=== PATIENT | male | born 1930 | race Caucasian/White ===

== ENCOUNTER 2018-09-02 16:43 | Inpatient (IN) | payer MEDICARE ==
[~2018-09-02] VITALS: Ht 180.3 cm; Wt 71.9 kg
[~2018-09-02 16:43] MED LIST: ALLO100 PO; ASCO1ER PO; ASCO500 PO; AZIT500 PO; B Complex #11 EACH PO; CARV25 PO; DEXT30SU PO; DIGO.125 PO; DOCU100 PO; ENTRESTO 24 MG1 EACH PO; FISH1000 PO; FURO40 PO; FURO80 PO; GLIM2 PO; GLIM4 PO; GUAI600T33 PO; INSLI100I SUBQ; INSUASPI SC; INSUGL100V SC; Isosorbide Mono30 MG PO; LACT10SY PO; LANOXIN125 MCG PO; LISI20 PO; LOSA50 PO; METO2.5 PO; METO5 PO; METO50ER PO; METPRE4DP PO; MINOIL PR; MSM1000 MG PO; MULVITMIND PO; Novolog100 UNIT/1 SC; OXYACE5T PO; PANT40 PO; POTA10T PO; POTCHL10ER PO; PROBIOTIC1 EACH PO; SPIR25 PO; TOCO400 PO; TORSE20 PO; UBID100 PO; Vitamin C100 M1 PO; Vitamin D2000 UNIT PO; WARF5 PO; WARF7.5 PO; XARELTO15 MG PO
[2018-09-02 17:37] LABS: BASOPHILS ABSOLUTE AUTO 0.02 K/mm3 (0.00-0.23); BASOPHILS PERCENT AUTO 0 % (0-2); EOSINOPHILS ABSOLUTE AUTO 0.15 K/mm3 (0.00-0.68); EOSINOPHILS PERCENT AUTO 2 % (0-6); Hemoglobin 7.8 g/dL (13.5-17.5); IMMATURE GRAN ABSOLUTE AUTO 0.05 K/mm3 (0.00-0.10); IMMATURE GRAN PERCENT AUTO 1 % (0-1); LYMPHOCYTES ABSOLUTE AUTO 1.08 K/mm3 (0.84-5.20); LYMPHOCYTES PERCENT AUTO 11 % (21-46); MONOCYTES PERCENT AUTO 5 % (4-13); Mean Corpuscular HGB 32.2 pg (26.0-34.0); Mean Corpuscular HGB Conc 31.2 g/dL (31.5-36.5); Mean Corpuscular Volume 103 fL (80-100); Mean Platelet Volume 10.2 fL (9.1-12.4); NEUTROPHILS ABSOLUTE AUTO 8.19 K/mm3 (1.96-9.15); NEUTROPHILS PERCENT AUTO 82 % (41-73); Platelet Count 165 K/mm3 (150-400); RDW Coefficient Variation 16.1 % (11.7-14.2); RDW Standard Deviation 60.6 fL (35.1-46.3); Red Blood Cell Count 2.42 M/mm3 (4.30-5.90); White Blood Cell Count 9.99 K/mm3 (4.00-11.30)
[2018-09-02 17:55] LABS: Albumin, Blood 3.2 g/dL (3.4-5.0); Bilirubin, Total 0.7 mg/dL (0.1-1.0); Bun/Creatinine Ratio 79.4 (12.0-20.0); Calcium, Blood 8.7 mg/dL (8.5-10.1); Creatinine, Blood 1.7 mg/dL (0.60-1.20); Globulin, Blood 3.2 g/dL (2.2-4.0); Potassium, Blood 4.5 mmol/L (3.5-5.5); Total Protein, Blood 6.4 g/dL (6.4-8.2)
[2018-09-02 17:57] LABS: Prothrombin Time Results 42.9 Sec (9.7-11.5)
[2018-09-02 18:01] LABS: International Normalized Ratio 4.65
[2018-09-02 20:08] LABS: Digoxin (Lanoxin) 1.27 ug/mL (0.80-2.00)
[2018-09-02] MEDS ORDERED: POTA10T PO (20:13)
[2018-09-02 23:49] LABS: Hematocrit 30.4 % (37.0-53.0); Hemoglobin 9.5 g/dL (13.5-17.5)
--- NOTE | 2018-09-03 00:56 | NUR ---
Recieved report and pt transferred to PCU 1 at 2213 via gurney and accompanied by ED RN. Pt able to transfer self to PCU bed with moderate assistance. Pt denies feeling dizzy or lightheaded with transfer. VSS upon arrival. Pt without chest pain, chest pressure, acute SOB, pt appears with no signs of distress. Pt accompanied by daughter Bertha. Pt able to make needs known, bed alarm on and bed in lowest and locked position. VS remain stable, HGB improving after 2 units of PRBC given in ED. Sanchez Rangel called this RN for update and update given: BP Stable, blood infused, Hgb improved, pt with appropriate mentation. No new orders recieved. Will continue to monitor and update.
[2018-09-03 03:57] LABS: Hematocrit 27.1 % (37.0-53.0); Hemoglobin 8.7 g/dL (13.5-17.5)
[2018-09-03 04:11] LABS: International Normalized Ratio 1.34
[2018-09-03 04:16] LABS: Prothrombin Time Results 13.8 Sec (9.7-11.5)
[2018-09-03 04:18] LABS: Bun/Creatinine Ratio 79.5 (12.0-20.0); Calcium, Blood 8.5 mg/dL (8.5-10.1); Creatinine, Blood 1.56 mg/dL (0.60-1.20); Magnesium, Blood 2.4 mg/dL (1.6-2.4); Potassium, Blood 4.1 mmol/L (3.5-5.5)
--- NOTE | 2018-09-03 06:44 | NUR ---
Shift Summary No acute changes this shift. VSS. Pt restful, sleeping throughout shift. No changes in mentation. Pt remains alert and oriented. Answers questions appropriately. Uses call light appropriately. Hgb dropped to 8.7. Discussed value with studio operations engineer in charge, Ros. Pt remains with stable BP and HR. Protonix gtt infusing per orders. Pt able to void at bedside into urinal. No active bleed, no BM this shift. Will continue to monitor.
[2018-09-03 08:10] LABS: Hematocrit 28.8 % (37.0-53.0); Hemoglobin 9.1 g/dL (13.5-17.5)
--- NOTE | 2018-09-03 09:14 | NUR ---
09/03/18 [address] FARTUN RIVAS TO LEAVE ICD ON FOR PROCEDURE, WILL PLACE MAGNET OVER AICD IF CAUTERY NEEDED
[2018-09-03 11:58] LABS: Hematocrit 28.4 % (37.0-53.0)
--- NOTE | 2018-09-03 14:20 | NUR ---
Advance Directive Education attempted. Patient is sleeping and could not wake him even after touching his shoulder and saying patient's name several times. Patient only snored more loudly. I left Advance Directive materials on patient's table.
--- NOTE | 2018-09-03 18:49 | NUR ---
SHIFT SUMMARY; PT HAD UPPER GI SCOPE TODAY WITHOUT INTERVENTION. HIS HGB IS NOW 9.0 NO NEW ORDERS ARE RECEIVED. SPOUSE IS AT BEDSIDE TODAY. PT WORKS WITH PT AND OT TODAY. HE HAS TWO EPISODES NOTED OF ELEVATED HR IN THE 130'S
--- NOTE | 2018-09-04 00:08 | NUR ---
Assumed care of pt at approx 1900. Pt appears sleepy, breathing easy and unlabored. Pt states he has felt sleepy since the EGD procedure. Pt responds to questions appropriately, is alert and oriented. family at bedside. Pt with slight hypotension this shift, otherwise VSS. house mother in to see pt with RN regarding blood pressure of 90's/40's. MAP remains >60. Close monitoring of BP for changes assessed this shift. Pt advised not to get up without assistance and is compliant. No s/sx of bleeding. Uses call light appropriately, call light in reach. See shift assessment for detailed assessment. Will continue monitoring.
[2018-09-04 03:44] LABS: BASOPHILS ABSOLUTE AUTO 0.01 K/mm3 (0.00-0.23); BASOPHILS PERCENT AUTO 0 % (0-2); EOSINOPHILS ABSOLUTE AUTO 0.19 K/mm3 (0.00-0.68); EOSINOPHILS PERCENT AUTO 2 % (0-6); Hematocrit 25.7 % (37.0-53.0); Hemoglobin 8.1 g/dL (13.5-17.5); IMMATURE GRAN ABSOLUTE AUTO 0.04 K/mm3 (0.00-0.10); IMMATURE GRAN PERCENT AUTO 0 % (0-1); LYMPHOCYTES ABSOLUTE AUTO 1.04 K/mm3 (0.84-5.20); LYMPHOCYTES PERCENT AUTO 12 % (21-46); MONOCYTES ABSOLUTE AUTO 0.63 K/mm3 (0.16-1.47); MONOCYTES PERCENT AUTO 7 % (4-13); Mean Corpuscular HGB Conc 31.5 g/dL (31.5-36.5); NEUTROPHILS ABSOLUTE AUTO 7.13 K/mm3 (1.96-9.15); NEUTROPHILS PERCENT AUTO 79 % (41-73); Platelet Count 122 K/mm3 (150-400); RDW Coefficient Variation 17.9 % (11.7-14.2); RDW Standard Deviation 62.2 fL (35.1-46.3); Red Blood Cell Count 2.61 M/mm3 (4.30-5.90); White Blood Cell Count 9.04 K/mm3 (4.00-11.30)
[2018-09-04 03:50] LABS: Mean Corpuscular Volume 99 fL (80-100)
[2018-09-04 04:00] LABS: Anion Gap 6 mmol/L (6-16); Blood Urea Nitrogen 106 mg/dL (8-24); Bun/Creatinine Ratio 71.1 (12.0-20.0); CO2, Blood 26 mmol/L (21-32); Calcium, Blood 8.4 mg/dL (8.5-10.1); Chloride, Blood 110 mmol/L (98-108); Creatinine, Blood 1.49 mg/dL (0.60-1.20); Glomerular Filtration Rate 47 (60-); Glucose, Blood 190 mg/dL (70-99); Phosphorus, Blood 2.7 mg/dL (2.5-4.9); Potassium, Blood 4.1 mmol/L (3.5-5.5); Sodium, Blood 142 mmol/L (136-145)
--- NOTE | 2018-09-04 05:09 | NUR ---
Dr. Tobias called and made aware of pt continued hypotension and accompanied hbg drop to 8.1. Pt has remained asymptomatic, is orthostatically stable, denies SOB, denies feelings of dizziness or lightheadedness, no changes in mentation, pt remains alert and oriented, answers all questions apporpiately. No signs or symptoms of active bleed, abdomen is non-tender and soft. Pt denies pain. Per Dr. Tobias: continue to monitor pt and repeat CBC at 1000. This RN will continue to monitor and follow orders as stated.
--- NOTE | 2018-09-04 05:59 | NUR ---
Shift Summary Pt remains alert and oriented, breathing easy and unlabored, no changes in pt appearance, skin temperature improved from cool at begining of shift to warm. Pt remains with low blood pressures, MD notified and aware, no new orders recieved at this time. Pt denies sx of hypotension, orthostatically stable, HR remains WNL. MD notifed and aware of hgb drop from 9.0 to 8.1, new order of repeat CBC at 1000 recieved. Pt remains without complaints of pain, tenderness, or discomfort. Pt uses call light appropriately, able to make needs known. No event noted on tele. Pt able to sleep on and off throughout shift. Will continue to monitor and update.
[2018-09-04 10:23] LABS: Hematocrit 26.4 % (37.0-53.0); Hemoglobin 8.3 g/dL (13.5-17.5); Mean Corpuscular HGB 31.1 pg (26.0-34.0); Mean Corpuscular HGB Conc 31.4 g/dL (31.5-36.5); Mean Corpuscular Volume 99 fL (80-100); Platelet Count 129 K/mm3 (150-400); RDW Standard Deviation 62.6 fL (35.1-46.3); Red Blood Cell Count 2.67 M/mm3 (4.30-5.90); White Blood Cell Count 9.22 K/mm3 (4.00-11.30)
--- NOTE | 2018-09-04 16:43 | NUR ---
SHIFT SUMMARY PT RESTING IN BED THROUGHOUT THE DAY. VSS EXCEPT SLIGHTLY HYPOTENSIVE. PT IS ASYMPTOMATIC WITH LOW BP. ALERT AND ORIENTED X3. PT AMBULATED TO BATHROOM WITH STANDBY ASSIST. PT HAD 1 MEDIUM BM TODAY, NOTED TO BE BLACK AND TARRY. UP TO CHAIR FOR MEALS. LUNG SOUNDS CLEAR, AFIB RATE 80s-90s ON TELEMETRY. 2+ PITTING EDEMA TO BLE. C/O DISCOMFORT TO ANKLE R/T EDEMA, DECLINES OFFERED PAIN MEDS. FAMILY AT BEDSIDE THIS AFTERNOON. PT RECEIVED 1 UNIT PRBC TODAY, TOLERATED WELL. WILL CONTINUE TO MONITOR.
[2018-09-05 03:36] LABS: BASOPHILS ABSOLUTE AUTO 0.02 K/mm3 (0.00-0.23); BASOPHILS PERCENT AUTO 0 % (0-2); EOSINOPHILS ABSOLUTE AUTO 0.17 K/mm3 (0.00-0.68); EOSINOPHILS PERCENT AUTO 2 % (0-6); Hematocrit 27.9 % (37.0-53.0); Hemoglobin 8.9 g/dL (13.5-17.5); IMMATURE GRAN ABSOLUTE AUTO 0.04 K/mm3 (0.00-0.10); IMMATURE GRAN PERCENT AUTO 1 % (0-1); LYMPHOCYTES ABSOLUTE AUTO 1.15 K/mm3 (0.84-5.20); LYMPHOCYTES PERCENT AUTO 14 % (21-46); MONOCYTES ABSOLUTE AUTO 0.74 K/mm3 (0.16-1.47); MONOCYTES PERCENT AUTO 9 % (4-13); Mean Corpuscular HGB 31.7 pg (26.0-34.0); Mean Corpuscular HGB Conc 31.9 g/dL (31.5-36.5); Mean Corpuscular Volume 99 fL (80-100); Mean Platelet Volume 10.6 fL (9.1-12.4); NEUTROPHILS ABSOLUTE AUTO 6.34 K/mm3 (1.96-9.15); NEUTROPHILS PERCENT AUTO 75 % (41-73); Platelet Count 135 K/mm3 (150-400); RDW Coefficient Variation 17.6 % (11.7-14.2); RDW Standard Deviation 61.1 fL (35.1-46.3); Red Blood Cell Count 2.81 M/mm3 (4.30-5.90); White Blood Cell Count 8.46 K/mm3 (4.00-11.30)
[2018-09-05 03:51] LABS: Bun/Creatinine Ratio 58.1 (12.0-20.0); Calcium, Blood 8.3 mg/dL (8.5-10.1); Creatinine, Blood 1.6 mg/dL (0.60-1.20); Potassium, Blood 4.6 mmol/L (3.5-5.5)
--- NOTE | 2018-09-05 05:44 | NUR ---
SHIFT SUMMARY: PT A&OX4. HYPOTENSIVE T/O SHIFT WITH MAP REMAINING >60. ALL OTHER VS WNL. PT DENIES DIZZINESS. HGB STABLE AT 8.9 THIS MORNING. PT HAD ONE SMALL BM/SMEAR. APPEARED TARRY BLACK IN COLOR. PT C/O PAIN TO BILATERAL ANKLES. PT REPORTS HX OF GOUT. 1+ PITTING EDEMA TO BILAT FEET. GIVEN TYLENOL PER EMAR. EXTREMITIES ELEVATED ON PILLOWS. SCDS ON. VOIDING IN URINAL AT BEDSIDE. BARRIER CREAM APPLIED TO BUTTOCKS. MEPILEX IN PLACE TO COCCYX FOR MILD REDNESS. PT TURNED FREQ T/O SHIFT FOR COMFORT. POSSIBLE DISCHARGE TODAY.
[2018-09-05] MEDS ORDERED: Humalog100 UNIT/3 SC (12:50)
[2018-09-05] MEDS ORDERED: SPIR25 PO (12:53)
--- NOTE | 2018-09-05 13:28 | NUR ---
DISCHARGE NOTE PT STABLE FOR DISCHARGE. IV X2 REMOVED. DISCHARGE INSTRUCTIONS, DISCHARGE MEDICATIONS, LOW SLIDING SCALE HANDOUT AND NEW MEDICATION EDUCATION PROVIDED TO AND REVIEWED WITH PT AND DAUGHTER. PT AND DAUGHTER VERBALIZE UNDERSTANDING AND DENY QUESTIONS AT THIS TIME. PT DISCHARGED VIA WHEELCHAIR TO WAITING CAR WITH PERSONAL BELONGINGS.
== END 2018-09-05 13:40 | disposition home or self-care (01) | DRG 378 ==
LOC: ER 16:43 → PCU 19:10
PROVIDERS: Internal Medicine; Nurse Practitioner Acute Care; Physician Assistant; Student in an Organized Health Care Education/Training Program; ADMIT Hospitalist
PROC: 30233N1 Transfusion of Nonautologous Red Blood Cells into Peripheral Vein, Percutaneous Approach (ICD-10-PCS; 2018-09-03)
PROC: 30283B1 Transfusion of Nonautologous 4-Factor Prothrombin Complex Concentrate into Vein, Percutaneous Approach (ICD-10-PCS; 2018-09-03)
PROC: 0DJ08ZZ Inspection of Upper Intestinal Tract, Via Natural or Artificial Opening Endoscopic (ICD-10-PCS; principal; 2018-09-03 08:45)
DX: K92.2 Gastrointestinal hemorrhage, unspecified (principal); I50.22 Chronic systolic (congestive) heart failure; D62 Acute posthemorrhagic anemia; I13.0 Hypertensive heart and chronic kidney disease with heart failure and stage 1 through stage 4 chronic kidney disease, or unspecified chronic kidney disease; I25.5 Ischemic cardiomyopathy; I48.2 Chronic atrial fibrillation; J44.9 Chronic obstructive pulmonary disease, unspecified; M10.9 Gout, unspecified; Z95.810 Presence of automatic (implantable) cardiac defibrillator; Z79.4 Long term (current) use of insulin; Z87.891 Personal history of nicotine dependence; E11.22 Type 2 diabetes mellitus with diabetic chronic kidney disease; Z79.01 Long term (current) use of anticoagulants; I95.9 Hypotension, unspecified; N18.3 Chronic kidney disease, stage 3 (moderate)
CPT/HCPCS: 36415; 36430; 71045; 80048; 80053; 80069; 80162; 82272; 82947; 83735; 83880; 84145; 85014; 85018; 85025; 85027; 85610; 85730; 86850; 86900; 86901; 86923; 93005; 93010; 96361; 96365; 96367; 96375; 97110; 97116; 97162; 97166; 97535; 99285-25; A9270; C9113; C9132; J1940; J2250; J2370; J2704; J3430; J7030; J7120; P9016

== ENCOUNTER 2018-10-10 21:38 | Inpatient (IN) | payer MEDICARE ==
[~2018-10-10] VITALS: Ht 175.3 cm; Wt 70.1 kg
[~2018-10-10 21:38] MED LIST changes: +Humalog100 UNIT/3 SC
[2018-10-10 22:04] LABS: BASOPHILS ABSOLUTE AUTO 0.04 K/mm3 (0.00-0.23); BASOPHILS PERCENT AUTO 0 % (0-2); EOSINOPHILS ABSOLUTE AUTO 0.06 K/mm3 (0.00-0.68); EOSINOPHILS PERCENT AUTO 0 % (0-6); Hematocrit 40.2 % (37.0-53.0); Hemoglobin 12.7 g/dL (13.5-17.5); IMMATURE GRAN ABSOLUTE AUTO 0.17 K/mm3 (0.00-0.10); IMMATURE GRAN PERCENT AUTO 1 % (0-1); LYMPHOCYTES PERCENT AUTO 4 % (21-46); MONOCYTES PERCENT AUTO 6 % (4-13); Mean Corpuscular HGB 31.1 pg (26.0-34.0); Mean Corpuscular HGB Conc 31.6 g/dL (31.5-36.5); Mean Corpuscular Volume 99 fL (80-100); Mean Platelet Volume 10.8 fL (9.1-12.4); NEUTROPHILS ABSOLUTE AUTO 19.28 K/mm3 (1.96-9.15); NEUTROPHILS PERCENT AUTO 89 % (41-73); Platelet Count 236 K/mm3 (150-400); RDW Coefficient Variation 15.5 % (11.7-14.2); RDW Standard Deviation 56.1 fL (35.1-46.3); Red Blood Cell Count 4.08 M/mm3 (4.30-5.90); White Blood Cell Count 21.75 K/mm3 (4.00-11.30)
[2018-10-10 22:22] LABS: Albumin, Blood 3.8 g/dL (3.4-5.0); Albumin/Globulin Ratio 0.9 (0.8-1.8); Bilirubin, Total 0.9 mg/dL (0.1-1.0); Bun/Creatinine Ratio 40.8 (12.0-20.0); Calcium, Blood 8.9 mg/dL (8.5-10.1); Creatinine, Blood 2.23 mg/dL (0.60-1.20); Globulin, Blood 4.3 g/dL (2.2-4.0); Total Protein, Blood 8.1 g/dL (6.4-8.2); Troponin I 0.027 ng/mL (0.000-0.040)
[2018-10-10 22:43] LABS: Digoxin (Lanoxin) 1.33 ug/mL (0.80-2.00)
[2018-10-10] MEDS ORDERED: ELIQUIS2.5 MG PO (23:05)
--- NOTE | 2018-10-11 00:32 | NUR ---
PT ARRIVES TO ICU 11 VIA GURNEY FROM ER, ALERT AND ORIENTED X 3, DENIES CURRENT N/V, DENIES CP/PRESSURE, STATES THAT BREATHING FEELS IMPROVED. SENTANCES ARE FULL, PRODUCTIVE COUGH IS NOTED, SPUTUM PINK ON TISSUE, PT REPORTS SPUTUM HAS BEEN CLEAR AND FROTHY AT HOME, LUNGS ARE CLEAR WITH DIM BASES BILAT, SATS ARE MID TO HIGH 90S WITH OXYGEN AT 3 L/MIN VIA NC, PT STATES THAT HE DOES NOT USE OXYGEN AT HOME, RESP RATE MID 20S, NO VISIBLE INCREASED WORK OF BREATHING AT THIS TIME. TACHYCARDIA NOTED, AFIB WITH RVR ON MONITOR, RATE UP TO 150S, PT NOTED HYPOTENSIVE, CALL PLACED TO DR DE LEON HOSPITALIST DRUM ATTENDANT AND HE ARRIVES TO BEDSIDE FOR EVALUATION. ABD SOFT, HYPERACTIVE BOWEL TONES NOTED, PT HAS BEEN INCONT OF BROWN LIQUID STOOL PRIOR TO ARRIVAL IN ICU, ATTENDS ARE NOTED IN PLACE, PT CLEANED AND ATTENDS REPLACED, BARRIER CREAM TO BUTTOCKS AFTER WOUND PHOTO OBTAINED. PT VOIDS 100 ML CLEAR YELLOW URINE IN URINAL WITHOUT DIFFICULTY. IV ACCESS TO RIGHT AC AND LEFT WRIST IS NOTED, SITES WNL, AND IVS FLUSH WITHOUT DIFFICULTY, PT TOLERATES WELL.
[2018-10-11 00:51] LABS: Source, Urine Clean Catch
[2018-10-11 00:56] LABS: Bilirubin, Urine Neg (Neg); Blood, Urine Neg (Neg); Glucose Qualitative, Urine Neg (Neg); Ketones, Urine Neg (Neg); Leukocyte Esterase, Urine Neg (Neg); Nitrite, Urine Neg (Neg); Protein, Urine Neg (Neg); Specific Gravity, Urine 1.015 (1.003-1.022); Urobilinogen, Urine NORM (Normal)
[2018-10-11 01:01] LABS: Appearance, Urine Clear (Clear); Color, Urine Yellow (P-Yellow)
--- NOTE | 2018-10-11 01:20 | NUR ---
ESMOLOL DC'D PER VERBAL ORDER FROM DR DE LEON, THIS RN WAS INSTRUCTED TO WAIT 30 MINUTES PRIOR TO STARTING NEOSYNEPHRINE AND TO ONLY START ANISH IF PT'S MAP IS LESS THAN 55. WILL MONITOR.
--- NOTE | 2018-10-11 01:30 | NUR ---
SPUTUM COLLECTED, NOTED PINK AND FROTHY IN SPECIMEN CUP, DR DE LEON IS STILL AT BEDSIDE AND NOTIFIED OF SPUTUM PRODUCTION.
[2018-10-11 01:38] LABS: Hematocrit 37.1 % (37.0-53.0); Hemoglobin 11.7 g/dL (13.5-17.5); Mean Corpuscular HGB 31.7 pg (26.0-34.0); Mean Corpuscular HGB Conc 31.5 g/dL (31.5-36.5); Mean Corpuscular Volume 101 fL (80-100); Mean Platelet Volume 10.9 fL (9.1-12.4); Platelet Count 180 K/mm3 (150-400); RDW Coefficient Variation 15.7 % (11.7-14.2); RDW Standard Deviation 57.4 fL (35.1-46.3); Red Blood Cell Count 3.69 M/mm3 (4.30-5.90); White Blood Cell Count 24.02 K/mm3 (4.00-11.30)
[2018-10-11 02:00] LABS: Albumin, Blood 3.3 g/dL (3.4-5.0); Albumin/Globulin Ratio 0.9 (0.8-1.8); Bilirubin, Total 1.1 mg/dL (0.1-1.0); Bun/Creatinine Ratio 42.2 (12.0-20.0); Calcium, Blood 8.5 mg/dL (8.5-10.1); Creatinine, Blood 2.06 mg/dL (0.60-1.20); Globulin, Blood 3.8 g/dL (2.2-4.0); Potassium, Blood 4.6 mmol/L (3.5-5.5); Total Protein, Blood 7.1 g/dL (6.4-8.2)
--- NOTE | 2018-10-11 02:00 | NUR ---
SPOKE WITH DR DE LEON REGARDING PT CONTINUED HYPOTENSION WITH IMPROVED RATE CONTROL, THIS RN IS AGAIN INSTRUCTED TO NOT START NEOSYNEPHRINE UNLESS PT'S MAP IS LESS THAN 55 AND THAT IT MAY BE RUN THROUGH PERIPHERAL ACCESS SITES LONG IT IS AT LOW DOSES OF 5 MCG/MIN OR LESS.
[2018-10-11 03:16] LABS: Adenovirus Not Detected (NOT DETECT); Bordetella pertussis Not Detected (NOT DETECT); Chlamydophila pneumoniae Not Detected (NOT DETECT); Coronavirus 229E Not Detected (NOT DETECT); Coronavirus HKU1 Not Detected (NOT DETECT); Coronavirus NL63 Not Detected (NOT DETECT); Coronavirus OC43 Not Detected (NOT DETECT); Human Metapneumovirus Not Detected (NOT DETECT); Human Rhinovirus/Enterovirus Not Detected (NOT DETECT); Influenza A Not Detected (NOT DETECT); Influenza A/2009-H1 Not Detected (NOT DETECT); Influenza A/H1 Not Detected (NOT DETECT); Influenza A/H3 Not Detected (NOT DETECT); Influenza B Not Detected (NOT DETECT); Mycoplasma pneumoniae Not Detected (NOT DETECT); Parainfluenza Virus 1 Not Detected (NOT DETECT); Parainfluenza Virus 2 Not Detected (NOT DETECT); Parainfluenza Virus 3 Not Detected (NOT DETECT); Parainfluenza Virus 4 Not Detected (NOT DETECT); Respiratory Syncytial Virus Not Detected (NOT DETECT)
--- NOTE | 2018-10-11 07:29 | NUR ---
PT RESTS QUIETLY FOLLOWING ADMIT, CONTINUES HYPOTENSIVE WITH RATE CONTROLLED TO THE 90S, MAP TRENDED DOWN TO LESS THAN 55 AFTER 0600 THIS AM AND NEOSYNEPHRINE WAS STARTED AT 5 MCG/MIN PER ORDERS. HE CONTINUES TO ROUSE EASILY TO VERBAL STIMULI AND REMAINS ORIENTED, PULSES REMAIN FAINT BUT PALPABLE X 4, SKIN IS WARM AND DRY, URINE OUTPUT OF 300 ML SINCE MIDNOC. HE STATES THAT HE IS FEELING IMPROVED FROM ARRIVAL TO ER AND DENIES SOB/DYSPNEA, DENIES CP/PRESSURE, DENIES N/V. LUNGS REMAIN CLEAR THROUGHOUT WITH DIM BASES BILAT, SATS REMAIN HIGH 90S WITH OXYGEN AT 3 L/MIN VIA NC, NO INCREASED WORK OF BREATHING IS NOTED THIS SHIFT, COUGH CONTINUES TO BE PRODUCTIVE OF PINK SPUTUM. AFIB CONTINUES HOWEVER RATE IS IMPROVED TO 70-90S AT THIS TIME.
--- NOTE | 2018-10-11 07:30 | NUR ---
BEGINNING OF SHIFT Assumed care at 0700 with Huong CLARKE. Bedside report recieved from Jeni CLARKE. Pt alert and oriented. SpO2 90% or greater with 3 LPM NC. Pt does not wear O2 at baseline. Amiodarone infusing at 1 mg/min. Neosynephrine infusing at 5 mcg/min. MAP 55-60. Cardiology consult orders received. Paged Dr Sullivan. Awaiting provider to call unit.
--- NOTE | 2018-10-11 08:00 | NUR ---
NEOSYNEPHRINE INCREASED BP 55/37 with neosynephrine at 5 mcg/min. Pt alert, oriented, talking to staff. States he is feeling lightheaded. Neosynephrine required titration up to 20 mcg/min to obtain MAP 55-60. Will continue to monitor. Amiodarone decreased to 0.5 mg/min per orders. Paged Dr Sullivan at 0750 to notify of consult. Awaiting provider to return call.
--- NOTE | 2018-10-11 08:35 | NUR ---
UPDATE Dr Lu in to see pt. Discussed current vasopressor requirements, maintenance fluids, BP, BNP. Provider stated pt okay to eat and drink. Notified provider that Dr Sullivan has not contacted unit to accept consult yet. Paged Dr Sullivan at 0830. Awaiting provider to call unit.
--- NOTE | 2018-10-11 09:19 | NUR ---
PICC LINE Called Dr Lu at 0900. Inquired about inserting PICC line since pt is on vasopressors. New orders received. Called pt's spouse to update and educate about PICC line insertion. Spouse verbalizes understanding.
--- NOTE | 2018-10-11 10:17 | NUR ---
UPDATE Spoke to Dr Sullivan at 0930. Ordered to contiue neosynephrine and amiodarone until provider can see pt. PICC line inserted. correctional maintenance technician at bedside for placement verification.
--- NOTE | 2018-10-11 14:08 | NUR ---
DR STRATTON IN TO SEE PT AT 1245 Orders for CVP via PICC line. CVP 13. Provider notified. Provider verbalizes recommendation to DC amiodarone, DC neosynephrine, and use levophed for BP support. Provider states these recommendations are to be given to hospitalist for further orders. Call placed to Dr Lu. New orders received.
--- NOTE | 2018-10-11 14:50 | NUR ---
ROOM AIR Titrated to room air. SpO2 96%. Pt currently in bed, sleeping.
--- NOTE | 2018-10-11 15:17 | NUR ---
VASOPRESSOR UPDATE Neosynephrine off. Levophed infusing at 6 mcg/min.
--- NOTE | 2018-10-11 16:00 | NUR ---
DR NAPOLES IN TO SEE PT Provider states goal MAP 50-55. Levophed titrated down to 5 mcg/min. Pt remains on room air.
--- NOTE | 2018-10-11 17:25 | NUR ---
SUMMARY Pt has remained A&O x 4. Pt reports some lightheadedness with low BPs but otherwise asymptomatic. Neosynephrine discontinued. Levophed infusing at 4 mcg/min. Amiodarone off. Atrial fibrillation with rate between 85 and 95 for majority of shift; pt has about 15 PVCs per minute, multifocal. Trace edema noted to bilateral lower extremities. Pt sat on edge of bed and stood at bedside. Pt stated lightheadedness and dizziness with standing. Pt reamains on room air, SpO2 95% or greater. Fine bibasilar crackles noted on lung auscultation. Pt has not had BM this shift. Voids into urinal at bedside. Pt states poor appetite but otherwise no problems eating, drinking, or swallowing. Will continue to closely monitor until care handoff and bedside report with oncoming RN. Pt's daughter Bertha visited twice today.
--- NOTE | 2018-10-11 19:15 | NUR ---
ASSUMED CARE OF PT, BEDSIDE REPORT RECEIVED. FAMILY AT BEDSIDE, PT CONVERSING IN FULL SENTANCES, DENIES PAIN, DENIES N/V, DENIES SOB/DYSPNEA. LEVOPHED AT 3 MCG/MIN AT THIS TIME INFUSING TO PICC LINE IN RIGHT UPPER ARM.
--- NOTE | 2018-10-11 20:45 | NUR ---
PT RESTING QUIETLY AT THIS TIME, DENIES CP/PRESSURE, DENIES SOB/DYSPNEA, DENIES N/V, DENIES DIZZINESS/VERTIGO, DENIES PAIN. SPEAKING IN FULL SENTANCES, LEVOPHED DECREASED TO 2 MCG/MIN FOR MAP GREATER THAN ORDERED 50-55 WILL CONT TO MONITOR AND TITRATE PER ORDERS. LUNGS CLEAR WITH DIM BASES BILAT LEFT BASE IS MORE DIMINISHED THAN RIGHT, MAINTAINING SATS ON ROOM AIR, RATE HIGH TEENS LOW 20S, OCCASIONAL COUGH, SPUTUM PRODUCTION IS DECREASED FROM PREV SHIFT PER PT. AFIB CONTINUES, RATE CONTROLLED 100-LOW 110S AT THIS TIME, PRESSURE IMPROVED, SKIN PWD, CAP REFILL BRISK, PULSES PALPABLE X 4 EXTREMITIES, TRACE EDEMA TO BILAT LOWER EXTREMITIES IS NOW EVIDENT, WILL MONITOR.
--- NOTE | 2018-10-12 03:20 | NUR ---
AFIB WITH RVR SPOKE WITH DR STRATTON REGARDING PT HR, BP, CURRENT LEVOPHED RATE, AND MAP. ORDERS RECEIVED TO CHANGE FROM LEVOPHED TO DOPAMINE AT LOW RATE FOR PRESSURE SUPPORT AND IMPROVED HEART RATE.
--- NOTE | 2018-10-12 03:47 | NUR ---
LEVOPHED GTT DC'D PER ORDERS AND DOPAMINE GTT STARTED INFUSING AT 2.5 MCG/KG/MIN WILL MONITOR.
[2018-10-12 04:41] LABS: BASOPHILS ABSOLUTE AUTO 0.03 K/mm3 (0.00-0.23); BASOPHILS PERCENT AUTO 0 % (0-2); EOSINOPHILS ABSOLUTE AUTO 0.15 K/mm3 (0.00-0.68); EOSINOPHILS PERCENT AUTO 1 % (0-6); Hematocrit 33.3 % (37.0-53.0); Hemoglobin 10.7 g/dL (13.5-17.5); IMMATURE GRAN ABSOLUTE AUTO 0.05 K/mm3 (0.00-0.10); IMMATURE GRAN PERCENT AUTO 0 % (0-1); LYMPHOCYTES ABSOLUTE AUTO 1.08 K/mm3 (0.84-5.20); LYMPHOCYTES PERCENT AUTO 9 % (21-46); MONOCYTES ABSOLUTE AUTO 1.05 K/mm3 (0.16-1.47); MONOCYTES PERCENT AUTO 9 % (4-13); Mean Corpuscular HGB 31.6 pg (26.0-34.0); Mean Corpuscular HGB Conc 32.1 g/dL (31.5-36.5); Mean Platelet Volume 11.2 fL (9.1-12.4); NEUTROPHILS ABSOLUTE AUTO 10.02 K/mm3 (1.96-9.15); NEUTROPHILS PERCENT AUTO 81 % (41-73); Platelet Count 175 K/mm3 (150-400); RDW Coefficient Variation 15.3 % (11.7-14.2); RDW Standard Deviation 55.3 fL (35.1-46.3); Red Blood Cell Count 3.39 M/mm3 (4.30-5.90); White Blood Cell Count 12.38 K/mm3 (4.00-11.30)
[2018-10-12 04:48] LABS: Mean Corpuscular Volume 98 fL (80-100)
[2018-10-12 05:04] LABS: Albumin, Blood 2.8 g/dL (3.4-5.0); Anion Gap 9 mmol/L (6-16); Blood Urea Nitrogen 81 mg/dL (8-24); Bun/Creatinine Ratio 41.1 (12.0-20.0); CO2, Blood 21 mmol/L (21-32); Calcium, Blood 8.2 mg/dL (8.5-10.1); Chloride, Blood 108 mmol/L (98-108); Creatinine, Blood 1.97 mg/dL (0.60-1.20); Glomerular Filtration Rate 34 (60-); Glucose, Blood 101 mg/dL (70-99); Phosphorus, Blood 2.9 mg/dL (2.5-4.9); Potassium, Blood 4.4 mmol/L (3.5-5.5); Sodium, Blood 138 mmol/L (136-145)
--- NOTE | 2018-10-12 06:00 | NUR ---
PT AWAKE AND WATCHING TV MOST OF THIS SHIFT, DENIES CP/PRESSURE, DENIES SOB/DYSPNEA THROUGHOUT SHIFT. UP TO BSC FOR BM X 1 EARLY THIS SHIFT AND DENIED DIZZINESS/VERTIGO AND TOLERATED WELL. LUNGS REMAIN CLEAR WITH DIM BASES BILAT THIS SHIFT WITH LEFT BASE MORE DIM THAN RIGHT, HOWEVER SATS WITH SLEEP AND TACHYCARDIA THIS AM DECREASED TO 88-89%, NASAL CANNULA APPLIED AT 1 L/MIN AND TITRATED UP TO 3 L/MIN, PT TOLERATED WELL. AFIB WITH RVR CONTINUES THIS AM, RATES UP TO 160S, SPOKE WITH DR STRATTON REGARDING PT RATE AND PRESSURES AND ORDERS WERE OBTAINED TO DC LEVOPHED AND USE LOW DOSE DOPAMINE, DOPAMINE STARTED AT 2.5 MCG/KG/MIN PER DR STRATTON AND HAS BEEN TITRATED DOWN TO 0.5 MCG/KG/MIN OF THIS TIME, HEART RATE CONTINUES 150S, WHEN DOPAMINE ORDER WAS OBTAINED, THIS RN INQUIRED REGARDING PRN RATE CONTROL AND DR STRATTON DISCUSSED RATIONALE FOR NOT ORDERING AMIODARONE, CARDIZEM, OR BETA BLOCKERS. PT DOES STATE THAT HIS HOME RATE RANGES BETWEEN 100 AND 140 BPM.
--- NOTE | 2018-10-12 09:45 | NUR ---
ASSUMED CARE OF PATIENT PER KENNA BECKHAM RN, PATIENT IS RESTING COMFORTABLY, BLOOD GLUCOSE 98, PATIENT IS ALERT AND ORIENTED, LUNG SOUNDS CLEAR, PATIENT TOOK AM MEDICATION WELL, NO PROBLEM SWALLOWING, LUCINDA BETANCOURT, CARE LOOPER FIXER IN TO SEE PATIENT, DAUGHTER AT BEDSIDE, PATIENT USES URINAL, CALL LIGHT IN REACH, WILL CONTINUE TO MONITOR.
--- NOTE | 2018-10-12 11:55 | NUR ---
REPORT GIVEN TO DAVID HERNÁNDEZ RN.
--- NOTE | 2018-10-12 11:55 | NUR ---
CARE OF PT ASSUMED. DR NAPOLES IN TO SEE PT. DOPAMINE STOPPED. PT IN A FIB W RATE 120-140'S. PT AWAKE AND ALERT W/O COMPLAINTS.
--- NOTE | 2018-10-12 15:00 | NUR ---
PT OOB TO CHAIR. LET PT DANGLE FOR 5MIN PRIOR TO MOVING TO CHAIR. BP STABLE. PT REMAINS IN A FIB. RATE 150-160 WHILE UP IN CHAIR; JUST SLIGHTLY HIGHER THAN WHILE IN BED. BATH GIVEN WHILE UP IN CHAIR. PALLIATIVE CARE IN TO VISIT WITH PT SHORTLY AFTER. PT COMFORTABLE SITTING UP; DENIES ALL COMPLAINTS.
--- NOTE | 2018-10-12 15:22 | NUR ---
Initial Visit: Palliative Care Consult for Advanced Care Planning, Cardiac, AD/POLST, and Pulmonary. Pt is A&O and denies pain at this time. He denies dyspnea, anxiety, and nausea. Engaged in therapeutic discussion regarding advanced care planning. Pt reports living at home with his and son. He has 2 daughters and 2 grandchildren. Pt reports not practicing any yarsani. Difficult to have endepth conversation and Pt appears mildly withdrawn and is not engaging. Pt reports adequate support at home with his children. Pt reports at baseline he is independent with his ADLs. Engaged in conversaiton regarding disease process and inquired about Pt's understanding of heart condition. Pt states "It's on it's last leg". Pt reports plan to donate his body to science. Discussed hospice as an option and Pt reports hospice already coming to his home. Pt states he is not interested in hospice. Suggested to Pt this option will be available at any time if he changes his mind. Educated Pt on the professional support that hospice provides for his family as well. V/U made by Pt. Pt reports no other concerns at this time. Pt's daughter Elissa arrives during visit and reports no concerns. Elissa states "he is a tough old bird". Palliative Care will remain available.
--- NOTE | 2018-10-12 16:50 | NUR ---
PT REMAINS UP IN CHAIR W/O COMPLAINTS. DR NAPOLES IN TO SEE PT; METOPROLOL PO ORDERED FOR RATE CONTROL; BP REMAINS STABLE.
--- NOTE | 2018-10-12 19:04 | NUR ---
PT ASSISTED BACK TO BED FROM CHAIR. MUCH MORE WEAK THIS TIME WITH POOR PERIPHERAL PERFUSION; COLD CYANOTIC EXT, CYANOTIC LIPS. PT DENIES C/O OTHER THAN BEING TIRED. HEART RATE OVER ALL HAS LOWERED; 100-140'S. BP REMAINS STABLE. SATS 96% ON RA. PT COLORING DID IMPROVE ONCE RESTING IN BED
--- NOTE | 2018-10-12 21:10 | NUR ---
START OF SHIFT: REPORT FROM DAVID CLARKE. PT PLACED BACK INTO BED WITHOUT DIFFICULTY. VSS. PT WITH NO COMPLAINTS. PT WITH VISITOR AT BEDSIDE. AT 1999. PT USES CALL LIGHT APPROPRIATELY.
--- NOTE | 2018-10-13 00:46 | NUR ---
PT ASSISTED UP TO CHAIR. PT WATCHING TV. CALL LIGHT IN HAND.
--- NOTE | 2018-10-13 04:22 | NUR ---
PT BACK TO BED WITH MINIMAL ASSIST. PT PLEASANT WITH NO COMPLAINTS. CALL LIGHT WITHIN REACH.
--- NOTE | 2018-10-13 08:00 | NUR ---
PT LAYING IN BED AWAKE A/OX3, PLEASANT AND COOPERATIVE WITH CARE, FOLLOWS COMMANDS WELL, DENIES PAIN AT THIS TIME, LUNGS ARE COURSE T/O, DIM IN BASES, RESP EVEN AND UNLABORED, IS CURRENTLY ON R/A, SATS IN MID 90'S, HRIRR, MONITOR IN PLACE RUNNING AFIB WITH A RATE OF 150 VARIABLE, WILL GIVE MEDIATIONS THIS AM TO SLOW IT, B/P IS LOW 100'S, IV IS PICC LINE TO MERCDEEZ SITE IS CLEAR AND PATENT, BTX4, ABD FLAT SOFT NONTENDER, VOIDS VIA URINAL, SKIN C/W/D, IS PINK ON COCCYX WITH A MEPILEX DRESSING, MAEW, ARETHA, DECONDITIONED, WEAK, HEELS ARE FLOATED ON PILLOWS, CALL LIGHT IN REACH.
[2018-10-13 08:03] LABS: Hematocrit 35.2 % (37.0-53.0); Hemoglobin 11.2 g/dL (13.5-17.5); Mean Corpuscular HGB 31.2 pg (26.0-34.0); Mean Corpuscular HGB Conc 31.8 g/dL (31.5-36.5); Mean Corpuscular Volume 98 fL (80-100); Mean Platelet Volume 11.2 fL (9.1-12.4); Platelet Count 175 K/mm3 (150-400); RDW Coefficient Variation 15.5 % (11.7-14.2); RDW Standard Deviation 56.2 fL (35.1-46.3); Red Blood Cell Count 3.59 M/mm3 (4.30-5.90); White Blood Cell Count 11.14 K/mm3 (4.00-11.30)
[2018-10-13 08:25] LABS: Bun/Creatinine Ratio 43.5 (12.0-20.0); Calcium, Blood 8.6 mg/dL (8.5-10.1); Creatinine, Blood 1.7 mg/dL (0.60-1.20); Potassium, Blood 4.6 mmol/L (3.5-5.5)
--- NOTE | 2018-10-13 14:25 | NUR ---
PT SITTING UP IN CHAIR SINCE BEFORE LUNCH, HAVE ASSISTED HIM TO BSC, HE DID HAVE A SMALL BM. HE WAS ASKED SEVERAL TIMES IF HE WOULD LIKE TO GET BACK TO BED, HE DECLINED, STATES HE BREATHS EASIER IN CHAIR, B/P IS IN THE 80'S AFTER THE EXTRA DOSE OF METOPROLOL, HEART RATE CAME DOWN TO [id number]. DR. NAPOLES STOPPED TO SEE HOW HES' DOING, SHE IS OK TO JUST WATCH, AND SAID HIS B/P IS OFTEN IN THE 80'S, MAP IS OVER 60. CALL LIGHT IN REACH.
--- NOTE | 2018-10-13 15:06 | NUR ---
PT LEFT FOR PCU VIA WHEELCHAIR WITH FOUNDER & CEO AND DAUGHTER IN ATTENDENCE. REPORT TO MABEL RN, ALL BELONGINGS WENT WITH PT.
--- NOTE | 2018-10-13 17:11 | NUR ---
NURSING PCU DAYSHIFT SUMMARY: Assumed care of pt at approx 1505. Arrived from ICU accompanied by staff and family. Xfer to chair, oriented to unit, call light placed in reach. Respiratory status appears stable though pt experiences dyspnea w/exertion, O2 sat upper 90's on RA. Tele in place, afib w/HR 150's, no c/o CP/pressure, BP stable. Pt denies any current needs or questions regarding plan of care. Call light in reach and pt is able to use w/o difficulty. Remains in chair at this time. Cont to monitor until rpt is given to NOC RN.
[2018-10-14 04:27] LABS: BASOPHILS ABSOLUTE AUTO 0.03 K/mm3 (0.00-0.23); BASOPHILS PERCENT AUTO 0 % (0-2); EOSINOPHILS ABSOLUTE AUTO 0.18 K/mm3 (0.00-0.68); EOSINOPHILS PERCENT AUTO 2 % (0-6); Hematocrit 35.1 % (37.0-53.0); Hemoglobin 11.2 g/dL (13.5-17.5); IMMATURE GRAN ABSOLUTE AUTO 0.04 K/mm3 (0.00-0.10); IMMATURE GRAN PERCENT AUTO 0 % (0-1); LYMPHOCYTES ABSOLUTE AUTO 0.99 K/mm3 (0.84-5.20); LYMPHOCYTES PERCENT AUTO 10 % (21-46); MONOCYTES ABSOLUTE AUTO 0.71 K/mm3 (0.16-1.47); MONOCYTES PERCENT AUTO 7 % (4-13); Mean Corpuscular HGB 30.8 pg (26.0-34.0); Mean Corpuscular HGB Conc 31.9 g/dL (31.5-36.5); Mean Corpuscular Volume 96 fL (80-100); Mean Platelet Volume 11.2 fL (9.1-12.4); NEUTROPHILS ABSOLUTE AUTO 8.46 K/mm3 (1.96-9.15); NEUTROPHILS PERCENT AUTO 81 % (41-73); Platelet Count 192 K/mm3 (150-400); RDW Coefficient Variation 15.6 % (11.7-14.2); RDW Standard Deviation 55.6 fL (35.1-46.3); Red Blood Cell Count 3.64 M/mm3 (4.30-5.90); White Blood Cell Count 10.41 K/mm3 (4.00-11.30)
[2018-10-14 04:41] LABS: Anion Gap 8 mmol/L (6-16); Blood Urea Nitrogen 82 mg/dL (8-24); Bun/Creatinine Ratio 45.6 (12.0-20.0); CO2, Blood 21 mmol/L (21-32); Calcium, Blood 8.7 mg/dL (8.5-10.1); Chloride, Blood 109 mmol/L (98-108); Glomerular Filtration Rate 38 (60-); Glucose, Blood 159 mg/dL (70-99); Magnesium, Blood 2.4 mg/dL (1.6-2.4); Phosphorus, Blood 3.7 mg/dL (2.5-4.9); Potassium, Blood 4.9 mmol/L (3.5-5.5); Sodium, Blood 138 mmol/L (136-145)
--- NOTE | 2018-10-14 06:13 | NUR ---
UPDATE DR DE LEON NOTIFIED THAT PATIENT'S HEART RATE HAS CONTINUED TO RUN IN THE 140'S-150'S THROUGHOUT MOST OF THE NIGHT SO FAR. NO ORDERS GIVEN AT THIS TIME.
--- NOTE | 2018-10-14 06:16 | NUR ---
SHIFT SUMMARY PATIENT PLEASENT AND COOPERATIVE THROUGHOUT THE NIGHT. PATIENT RESTED IN BED FOR PART OF THE NIGHT BUT WAS UNABLE TO SLEEP WELL DUE TO DIFFICULTY BREATHING. PATIENT THEN MOVED TO THE RECLINER WHERE HE SPENT MOST OF THE REST OF THE NIGHT. PATIENT STATED THAT HE IS ABLE TO BREATH MUCH BETTER WHILE SITTING UP IN THE CHAIR. IV ABX GIVEN PER ORDERS. PATIENT'S HEART RATE MOSTLY REMAINED IN THE 140'S-150'S THROUGHOUT THE NIGHT. DR DE LEON AWARE. HOWEVER, PATIENT DENIES ANY DIZZINESS AND STATES THAT HIS CHEST, "FEELS FINE." VITAL SIGNS CHARTED. WILL CONTINUE TO MONITOR PATIENT AND REPORT TO ONCOMING RN.
--- NOTE | 2018-10-14 07:21 | NUR ---
NURSING PCU DAYSHIFT: Assumed care of pt at approx 0700. A/O, very pleasant, mildly [place], cooperative w/care. Denies any pain/discomfort at rest. Skin is fragile w/reported redness to coccyx, mepilex in place. General weakness noted, requires assistance for transfers. C/O chronic numbness/tingling of BLE. Tele in place, afib w/HR 150's, no c/o CP/pressure, SBP 113 prior to a.m. meds, trace edema noted to LLE. L/S fairly cta t/o w/dim bases, respirations rapid and shallow, O2 sat upper 90's on RA, c/o dyspnea w/minimal exertion or supine positioning, occ cough producing frothy/white sputum. Abd SNT, BT+, voids small amts of urine using urinal. PICC present in RUE, s/l. Pt denies any current needs or questions regarding plan of care. Assisted w/positioning in bed, heels floated. Call light in reach and pt is able to use w/o difficulty. Awaiting rounding from PMD, cont to monitor for any changes.
--- NOTE | 2018-10-14 15:54 | NUR ---
NURSING PCU DAYSHIFT SUMMARY: No acute changes noted t/o the shift. HR has maintained 130-150's, BP stable. Finance Business Partner notified of difficulties maintaining HR, new d/o received, amiodarone started. Discussed amiodarone w/pt who stated he took it several years ago and it caused "calcium to build up in my eyes" which is why it is listed as an allergy for pt. Pt stated he is aware options are limited and that he wants to try amiodarone, first dose administered. Pt has spend majority of shift sitting on edge of bed. Lying down cause pt to experience increased dyspnea, sitting in recliner caused too much buttocks discomfort. Able to reposition independently from lying down to dangling position. Family at bedside earlier in afternoon. Update provided. Pt denies any current questions, call light in reach, cont to monitor until rpt is given to NOC RN.
[2018-10-15 03:38] LABS: Hematocrit 34.6 % (37.0-53.0); Mean Corpuscular HGB Conc 31.8 g/dL (31.5-36.5); Mean Corpuscular Volume 98 fL (80-100); Mean Platelet Volume 10.9 fL (9.1-12.4); Platelet Count 197 K/mm3 (150-400); RDW Coefficient Variation 15.5 % (11.7-14.2); RDW Standard Deviation 55.4 fL (35.1-46.3); Red Blood Cell Count 3.55 M/mm3 (4.30-5.90); White Blood Cell Count 10.77 K/mm3 (4.00-11.30)
[2018-10-15 03:55] LABS: Bun/Creatinine Ratio 50.5 (12.0-20.0); Calcium, Blood 8.8 mg/dL (8.5-10.1); Creatinine, Blood 1.92 mg/dL (0.60-1.20); Potassium, Blood 5.5 mmol/L (3.5-5.5)
--- NOTE | 2018-10-15 06:53 | NUR ---
SHIFT SUMMARY PATIENT PLEASENT AND COOPERATIVE THROUGHOUT THE NIGHT. PATIENT SAT UP AT THE EDGE OF THE BED MOST OF THE NIGHT STATING THAT SITTING UP HELPED HIM BREATH BETTER AND HELPED TO RELIEVE HIS BACK PAIN. PATIENT PROVIDED WITH AN EGG CREATE FOR COMFORT. PATIENT CONTINUES TO SIT AT THE EDGE OF THE BED THIS MORNING STATING THAT HE WAS MOST COMFORTABLE SITTING UP. PATIENT STATED HE WAS FINE AT THE EDGE OF THE BED AND DID NOT WANT TO SIT IN THE CHAIR. VITAL SIGNS CHARTED. IV ABX GIVEN PER ORDERS. PATIENT APPEARED TO NAP ON AND OFF LAST NIGHT. WILL CONTINUE TO MONITOR PATIENT AND REPORT TO ONCOMING RN.
--- NOTE | 2018-10-15 07:43 | NUR ---
pt sitting on the side of the bed awake a/ox3, pleasant and cooperative with care follows commands well, denies pain, lungs are clear t/o, resp even and unlabored, no cough noted, hrirr, tele in place running afib per monitor at 115bpm, trace edema noted to b/l le, cap refill <4 sec, vs stable, afebrile, iv site is a picc line to diana site is clear and patent, btx4, abd round soft nontender, voids via urinal, skin has pink bottom otherwise c/w/d, rogelio, bert, call light in reach.
[2018-10-15] MEDS ORDERED: Amiodarone HCl200 MG PO (15:08)
[2018-10-15] MEDS ORDERED: HIGH POTENCY P1 EACH PO (15:09)
[2018-10-15] MEDS ORDERED: CEFP200 PO (15:10)
--- NOTE | 2018-10-15 15:53 | NUR ---
PT HAS BEEN DISCHARGED TO HOME, WENT OVER DISCHARGE INSTRUCTIONS WITH 2 DAUGHTERS, ANSWERED QUESTIONS UNTIL THEY WERE SATIFIED THEY UNDERSTOOD. CALLED NEW MEDICATIONS TO [facility], AND FAXED TO THEM. DAUGHTERS WILL GO TO GET [employer] THEN PICK HIM UP. HE IS SITTING ON THE SIDE OF THE BED MOST OF THE DAY, GAVE HIM AN ENSURE TO DRINK HE DIDN'T EAT LUNCH. CALL LIGHT IN REACH.
--- NOTE | 2018-10-15 17:59 | NUR ---
picc line removed by rim fire charger operator. family here to take him home, already went over instructions with them, and they picked up meds. will leave via wheelchair with dividend deposit voucher clerk in attendence.
--- NOTE | 2018-10-15 18:12 | NUR ---
PT LEFT VIA WHEELCHAIR WITH STACK SUPERVISOR IN ATTENDENCE.
== END 2018-10-15 18:13 | disposition home or self-care (01) | DRG 871 ==
LOC: ER 21:38 → PCU 23:02 → ER 23:02 → ICUW 23:02 → PCU 10-13 15:05
PROVIDERS: Emergency Medicine; Internal Medicine; ADMIT Internal Medicine
PROC: 3E033XZ Introduction of Vasopressor into Peripheral Vein, Percutaneous Approach (ICD-10-PCS; principal; 2018-10-10)
DX: A41.9 Sepsis, unspecified organism (principal); J96.21 Acute and chronic respiratory failure with hypoxia; I50.43 Acute on chronic combined systolic (congestive) and diastolic (congestive) heart failure; I21.A1 Myocardial infarction type 2; J18.9 Pneumonia, unspecified organism; I13.0 Hypertensive heart and chronic kidney disease with heart failure and stage 1 through stage 4 chronic kidney disease, or unspecified chronic kidney disease; N17.9 Acute kidney failure, unspecified; I42.0 Dilated cardiomyopathy; J44.9 Chronic obstructive pulmonary disease, unspecified; R65.20 Severe sepsis without septic shock; M10.9 Gout, unspecified; N18.3 Chronic kidney disease, stage 3 (moderate); Z79.4 Long term (current) use of insulin; I48.91 Unspecified atrial fibrillation; E86.0 Dehydration; E11.65 Type 2 diabetes mellitus with hyperglycemia; R19.7 Diarrhea, unspecified; Z95.0 Presence of cardiac pacemaker; I27.20 Pulmonary hypertension, unspecified
CPT/HCPCS: 0099U; 36415; 36569; 71045; 80048; 80053; 80069; 80162; 81003; 82550; 82947; 83605; 83735; 83880; 84145; 84484; 85025; 85027; 87040; 87070; 87205; 93005; 93010; 94667; 94668; 94760; 96365; 96367; 97163; 97530; 99285-25; C1751; J0282; J0696; J1265; J1650; J1956; J2370; J2543; J3370; J7030; J7040; J7060